=== PATIENT | female | born 1995 | race Two or more races ===

== ENCOUNTER 2023-07-11 18:24 | Emergency (ER) | payer BC, SELFPAY ==
[2023-07-11 18:26] VITALS: BP 131/94
[2023-07-11 18:46] LABS: % Basophils 0.5 % (0-2); % Eosinophils 0.9 % (0-6); % Immature Granulocytes 0.3 % (0-0.5); % Lymphocytes 43.7 % (20.5-51.1); % Monocytes 5.8 % (1.7-9.3); % Neutrophils 48.8 % (42.2-75.2); Absolute Eosinophils 0.1 10^3/uL (0-0.7); Absolute Lymphocytes 3.5 10^3/uL (1.2-3.4); Absolute Monocytes 0.5 10^3/uL (0.1-0.6); Absolute Neutrophils 3.9 10^3/uL (1.4-6.5); Hematocrit 41.5 % (37.0-47.0); Hemoglobin 14.3 g/dL (12.0-16.0); Mean Corp Hgb Conc. 34.5 g/dL (33.0-37.0); Mean Corpuscular Hgb 30.7 pg (27.0-31.0); Mean Corpuscular Volume 89.1 fL (81.0-99.0); Nucleated Red Blood Cells % 0 %; Platelet Count 227 10^3/uL (130-400); Red Blood Cell Count 4.66 10^6/uL (4.20-5.40); Red Cell Dist. Width 11.9 % (11.5-14.5); White Blood Cell Count 7.9 10^3/uL (4.8-10.8)
[2023-07-11 19:04] LABS: ALT (SGPT) 44 U/L (0-35); AST (SGOT) 39 U/L (14-36); Albumin 4.6 g/dl (3.5-5.0); Alkaline Phosphatase 85 U/L (38-126); Blood Urea Nitrogen 12 mg/dl (7-17); Calcium 9.8 mg/dl (8.4-10.2); Carbon Dioxide 27 mmol/L (22-30); Chloride 101 mmol/L (98-107); Glucose 118 mg/dl (70-99); Sodium 137 mmol/L (135-145); Total Bilirubin 0.5 mg/dl (0.2-1.3); Total Protein 8.6 g/dl (6.3-8.2); eGFR > 60.00
[2023-07-11 19:10] VITALS: BMI 30.5
[2023-07-11 19:15] VITALS: BP 121/95
[2023-07-11 19:15] LABS: Beta HCG Quantitative 13.51 mIU/ml
--- NOTE | 2023-07-11 19:30 | ED.GENMED ---
History of Present Illness
General
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
Source: patient
Exam Limitations: none
Time Seen by Provider: 07/11/23 19:05
Travel History
Have you had any contact with someone who has COVID-19?: No
Do you have any symptoms of coronavirus? Fever > 100 degrees, chills, cough, shortness of breath, sore throat, loss of taste or smell, muscle aches, or headache?: No
History of Present Illness
History of Present Illness:
This is a 28 year old female that comes in with c/o bleeding through 5 pads in 1.5 hours. States that this is her second Miscarriage. States that she went to see the CORE WINDING OPERATOR on Jun 17. States that her HCG level at that time was only 60. Then on the
it was down to 52, and 2 days later it was only 45. Patient was given Misoprostol on the . States that she had no bleeding at the beginning. Then 4 hours later she started to bleed. States that she is having cramping and large clots. States
that she also has a headache. Denies any fever, chills, chest pain, SOB, nausea, vomiting, diarrhea, dizziness, urinary burning.
Past History
Past History
ED Past Medical History: None; Negative Asthma, HTN, Hypercholesterolemia or NIDDM
ED Past Surgical History: Gynecological (D7C Mar 30 2023)
Social History
Tobacco: Non-smoker
Alcohol: Occasional
Personal:
Living: with family
Review of Systems
Review of Systems
All Other Systems: ROS reviewed and negative except as documented in HPI and ROS
Constitutional: Reports no symptoms; Denies fever or chills
EENT: Reports no symptoms
Respiratory: Reports no symptoms; Denies cough or trouble breathing
Cardiac: Reports no symptoms; Denies chest pain
ABD/GI: Reports abdominal pain (Cramping); Denies nausea, vomiting or diarrhea
: Reports bleeding (5 pads in 1.5 hours); Denies dysuria, frequency or urgency
Musculoskeletal: Reports no symptoms
Skin: Reports no symptoms
Neurological: Reports headache; Denies dizzy
Psychiatric: Reports no symptoms
Phy Exam
General Physical Exam
General Presentation: mild distress
General age: appears stated age
General Skin: warm and dry
General Habitus: normal
General Mental: alert
General Hydration: appears well hydrated
ENT Exam
ENT Exam: TM's normal, pharynx normal and neck supple
Eye Exam
Eye Exam: EOMI
Cardiovascular Exam
Cardiovascular Exam: regular rate/rhythm, no edema, no murmur and normal peripheral pulses
Pulmonary Exam
Pulmonary Exam: lungs clear, no respiratory distress, no rales, chest non tender, no crackles, no rhonchi, no wheezing and no cough
Gastrointestinal Exam
Gastrointestinal Exam: normal bowel sounds, soft, no organomegaly, no pulsatile mass, non distended and tender (Lower abd tenderness with palpation)
Genitourinary Exam Female
Exam Female: vaginal bleeding (Small amount noted on Pad at this time )
Musculoskeletal Exam
Musculoskeletal Exam: full ROM and no edema
Skin Exam
Skin Exam: normal color, warm/dry, no rash and no petechia
Psychiatric Exam
Psychiatric Exam: normal mood/affect
Course
Orders/Labs/Results
Orders:
Orders
07/11/23 18:40
Type+Screen Urgent
Complete Blood Count/With Diff Urgent
Comprehensive Metabolic Panel Urgent
HCG, Beta Quantitative [Beta HCG Quantitative] Urgent
Is this a screen?: No
Comment: Pt is currently in miscarriage
07/11/23 19:21
0.9% Sodium Chloride 1000 ml [Nss] 1,000 ml IV BOLUS
Ketorolac [Toradol] 30 mg IV NOW STA
US Pelvis Only (non-obstetric) Urgent
Comment:
Reason For Exam: recent Misscarriage, concern for retained products
Abnormal Lab Results
07/11/23
18:40
MPV 11.0 H fL
(7.4-10.4)
Absolute Lymphs (auto) 3.5 H 10^3/uL
(1.2-3.4)
Creatinine 0.5 L mg/dL
(0.6-1.0)
Glucose 118 H mg/dl
(70-99)
AST 39 H U/L
(14-36)
ALT 44 H U/L
(0-35)
Total Protein 8.6 H g/dl
(6.3-8.2)
07/11/23 18:40
07/11/23 18:40
Glucose nonfasting, AST/ALT mildly elevated. Beta HCG 13.51,
Vital Signs
Initial and Last Documented VS:
Initial Vital Signs
Temp Pulse Resp BP Pulse Ox
98.7 F 87 18 131/94 98
07/11/23 18:26 07/11/23 18:26 07/11/23 18:26 07/11/23 18:26 07/11/23 18:26
Last Documented Vital Signs
Temp Pulse Resp BP Pulse Ox
98.1 F 76 16 112/67 100
07/11/23 21:18 07/11/23 21:18 07/11/23 21:18 07/11/23 21:18 07/11/23 21:18
MDM/Problems Addressed
Differential Diagnosis Includes:
Miscarriage, retained products of conception
MDM/Problems Addressed:
This is a 28 year old female that comes in with c/o lower abd pain and heavy vaginal bleeding. States that she has gone through 5 pads in 1.5 hours. States that she was given Misoprostol on the on Jun. States that she started bleeding 4
hours after she started this. States that today has been very heavy.
will get labs and Ultrasound
back into see patient. Explained that her US is negative for any retained products. The body is trying to clean itself. Patient to follow up with the CORE WINDING OPERATOR for further evaluation. Tylenol or Ibuprofen for pain. Return with any concerns.
Chronic conditions affecting care:
NA
Acute Exacerbation and/or Progression of Chronic Illness:
Miscarriage and started Misoprostol on the Jun.
*Radiology
Radiology exam reviewed: radiology read reviewed (US- Simple fluid-filled endometrium. No overt evidence for blood products or retained products of conception. Nonvisualization of the left ovary. )
*Pulse Oximetry
Patient hypoxic: no
*EKG
Interpreted by ED Provider?: NA
Rate: EKG- N/A
*Law Reporter Interpretation
Rate: Law Reporter- N/A
*Critical Care Note
Total Time (30-74mins, 75-104mins- exclusive of procedures): Not Applicable
ED Attending Note
-
Portions of this chart may have been created with voice recognition software.� Occasional wrong word or��sound alike� substitutions may have occurred due to the inherent limitations of voice recognition software.
Discharge Plan
Departure
Patient Disposition: Home (Routine Discharge)
Date of Disposition: 07/11/23
Time of Disposition: 21:48
Patient with high blood pressure during this ER visit?: No
Condition: Good
Covid-19: Not Applicable
Discharge Problem:
Miscarriage
Instructions: Miscarriage (DC)
Prescriptions:
No Action
ondansetron 8 mg Tablet,Disintegrating
8 mg PO DAILY
1 mg Tablet
1 tab PO DAILY
docusate sodium [Colace] 100 mg Capsule
200 mg PO DAILY
Referrals:
NONE,* [Family Provider] -
Activity Restrictions/Additional Instructions:
As discussed, your blood work shows that your Hgb is normal. Your US is negative for any retained products. Please increase your water intake to 8-8oz glasses daily. Please follow up with the CORE WINDING OPERATOR for further evaluation. You may also use Tylenol
1000mg every 6 hours and alternate with Ibuprofen 600mg every 6 hours with food for pain. IF YOU HAVE ANY OTHER CONCERNS PLEASE RETURN TO THE EMERGENCY ROOM.
Interventions
Interventions:
*Risk Screen - Suicide Last Done: 07/11/23 18:30
*General Assessment Last Done: 07/11/23 19:10
*Neglect/Abuse Screening Last Done: 07/11/23 18:30
ED- Fall Risk Assessment Last Done: 07/11/23 19:12
*ED COVID-19 Vaccine History Last Done: 07/11/23 19:10
ED-Female Genitourinary Assessment Last Done: 07/11/23 19:12
[2023-07-11] MEDS: NSS 1000 IV (19:38)
[2023-07-11] MEDS: TORADOL 30 MG IV (19:38)
[2023-07-11 21:18] VITALS: BP 112/67
[2023-07-11 22:30] VITALS: BP 110/59
== END 2023-07-11 22:32 | disposition home or self-care (01) ==
LOC: EMR 18:24
PROVIDERS: Emergency Medicine; EMERGENCY PHYSICIAN Emergency Medicine
DX: O03.4 Incomplete spontaneous abortion without complication (principal)
CPT/HCPCS: 99284; 96374; 96361; 76856; 80053; 84702; 85025; 86850; 86900; 86901

== ENCOUNTER 2023-07-13 08:25 | Emergency (ER) | payer BC, SELFPAY ==
[2023-07-13 08:34] VITALS: BP 120/77
--- NOTE | 2023-07-13 09:00 | ED.GENMED ---
History of Present Illness
General
Chief Complaint: Vaginal Bleeding
Time Seen by Provider: 07/13/23 09:00
Travel History
Have you had any contact with someone who has COVID-19?: No
Do you have any symptoms of coronavirus? Fever > 100 degrees, chills, cough, shortness of breath, sore throat, loss of taste or smell, muscle aches, or headache?: No
History of Present Illness
History of Present Illness:
HPI: The patient was here 2 days ago with vaginal bleeding and had a quant at that time of 13.5. She comes in today due to passing tissue and thought that her 'uterus fell out'. She has minimal pelvic discomfort more so on the right side. She is
no longer seeing anybody from [place] [facility] but is to be following up with Adelina Fournier NP at [facility].
EXAM:
GENERAL: Well appearing in no distress
HEENT: Moist oral mucosa
CARDIOVASCULAR: No murmurs, normal heart rate and rhythm, No chest wall tenderness
PULMONARY: No respiratory distress, breath sounds are clear and equal
ABDOMEN: Soft with no peritoneal signs, minimal right lower tenderness
NEUROLOGIC: Excellent strength all extremities, no coordination deficits
PSYCHIATRIC: Appropriate mental status, normal insight and judgement
EXTREMITIES: Nontender, no edema, moves all extremities equally
SKIN: No rash, no lesions
ED COURSE:
9:15 AM: I initially evaluated patient
NUMBER AND COMPLEXITY OF PROBLEMS ADDRESSED AT THE ENCOUNTER
� Chronic conditions affecting care: Had a D&C last year
� Acute Exacerbation and/or Progression of Chronic Illness: This is an acute problem
� Differential Diagnosis includes: Retained POC, miscarriage
AMOUNT AND/OR COMPLEXITY OF DATA TO BE REVIEWED AND ANALYZED
� I performed an independent evaluation of and my interpretation is:
EKG:
CT:
X-rays:
Laboratory Studies: hCG has dropped to 6.2, hemoglobin stable at 13.4
Other:
� Review of other/old records: Quant 2 days ago was 13.5, blood type is O+, ultrasound from 07/11/2023 showed a fluid-filled endometrium with no evidence of blood products or POC's
� Clinical information was obtained by an independent historian: I spoke to the at bedside
� Prescriptions/Medications Considered but not given:
� Further testing considered but not performed: No indication for repeat ultrasound as she already passed tissue and had an unremarkable ultrasound 2 days ago
RISK OF COMPLICATIONS AND/OR MORBIDITY OR MORTALITY OF PATIENT MANAGEMENT
� Social determinants of health affecting care: Lives at home
� Discussion with other providers: I notified Adelina Fournier [facility]
� Escalation of care including admission/observation vs risk of discharge considered: GAMING MANAGER at [facility] recommends sending tissue for pathology which we have done. hCG level has continued to drop.
Past History
Past History
ED Past Medical History: None; Negative Asthma, HTN, Hypercholesterolemia or NIDDM
ED Past Surgical History: Gynecological (D7C Mar 30 2023)
Social History
Tobacco: Non-smoker
Alcohol: Occasional
Personal:
Living: with family
Phy Exam
Physical Exam
Physical Exam:
See HPI
Course
Orders/Labs/Results
Orders:
Orders
07/13/23 09:25
Pathology LDRP [LDRP Pathology] Routine
Date Specimen was Collected: 07/13/23
Pre-Operative Diagnosis: POC
Operative Procedure: Spontaneous passage of tissue
Gestational Age: unknown
Tissue Submitted: Placenta
07/13/23 09:26
Beta HCG Quantitative Urgent
Is this a screen?: No
Complete Blood Count/With Diff Urgent
Abnormal Lab Results
07/13/23
09:26
MPV 11.1 H fL
(7.4-10.4)
07/13/23 09:26
Vital Signs
Initial and Last Documented VS:
Initial Vital Signs
Temp Pulse Resp BP Pulse Ox
98.3 F 76 16 120/77 98
07/13/23 08:34 07/13/23 08:34 07/13/23 08:34 07/13/23 08:34 07/13/23 08:34
Last Documented Vital Signs
Temp Pulse Resp BP Pulse Ox
98.3 F 76 16 120/77 98
07/13/23 08:34 07/13/23 08:34 07/13/23 08:34 07/13/23 08:34 07/13/23 08:34
*Critical Care Note
Total Time (30-74mins, 75-104mins- exclusive of procedures): Not Applicable
ED Attending Note
-
Portions of this chart may have been created with voice recognition software.� Occasional wrong word or��sound alike� substitutions may have occurred due to the inherent limitations of voice recognition software.
Discharge Plan
Departure
Patient Disposition: Home (Routine Discharge)
Date of Disposition: 07/13/23
Time of Disposition: 10:11
Patient with high blood pressure during this ER visit?: Yes
Discharge Problem:
Complete miscarriage
Prescriptions:
No Action
ondansetron 8 mg Tablet,Disintegrating
8 mg PO DAILY
1 mg Tablet
1 tab PO DAILY
docusate sodium [Colace] 100 mg Capsule
200 mg PO DAILY
Referrals:
NONE,* [Family Provider] -
Activity Restrictions/Additional Instructions:
hCG has gone down to 6.2. I notified Adelina Fournier; pathology testing is pending.
Interventions
Interventions:
*Risk Screen - Suicide Last Done: 07/13/23 09:18
*General Assessment Last Done: 07/13/23 09:18
*Neglect/Abuse Screening Last Done: 07/13/23 09:18
*ED COVID-19 Vaccine History Last Done: 07/13/23 08:34
ED-Female Genitourinary Assessment Last Done: 07/13/23 09:18
--- NOTE | 2023-07-13 09:30 | EDRN ---
per pathology dental laboratory supervisor instructions, this ATHLETE MANAGER sent tissue passed vaginally by this pt to the lab via tube system in a sterile urine specimen container labeled with demo labels that this ATHLETE MANAGER dated, timed, labeled source, and signed with RN ID
number.
[2023-07-13 09:33] LABS: % Basophils 0.5 % (0-2); % Immature Granulocytes 0.2 % (0-0.5); % Lymphocytes 35.1 % (20.5-51.1); % Monocytes 5.2 % (1.7-9.3); Absolute Eosinophils 0.1 10^3/uL (0-0.7); Absolute Lymphocytes 2.1 10^3/uL (1.2-3.4); Absolute Monocytes 0.3 10^3/uL (0.1-0.6); Absolute Neutrophils 3.5 10^3/uL (1.4-6.5); Hematocrit 39.4 % (37.0-47.0); Hemoglobin 13.4 g/dL (12.0-16.0); Mean Corpuscular Hgb 30.7 pg (27.0-31.0); Mean Corpuscular Volume 90.2 fL (81.0-99.0); Mean Platelet Volume 11.1 fL (7.4-10.4); Nucleated Red Blood Cells % 0 %; Platelet Count 192 10^3/uL (130-400); Red Blood Cell Count 4.37 10^6/uL (4.20-5.40); Red Cell Dist. Width 11.9 % (11.5-14.5)
[2023-07-13 10:08] LABS: Beta HCG Quantitative 6.21 mIU/ml
[2023-07-13 10:23] VITALS: BP 110/77
== END 2023-07-13 10:31 | disposition home or self-care (01) ==
LOC: EMR 08:25
PROVIDERS: EMERGENCY PHYSICIAN Emergency Medicine
DX: O03.9 Complete or unspecified spontaneous abortion without complication (principal); R03.0 Elevated blood-pressure reading, without diagnosis of hypertension
CPT/HCPCS: 99284; 88305; 84702; 85025

== ENCOUNTER 2023-10-19 08:52 | Emergency (ER) | payer BC, SELFPAY ==
[2023-10-19 09:14] VITALS: BP 114/78
[2023-10-19 09:37] LABS: % Basophils 0.1 % (0-2); % Immature Granulocytes 0.2 % (0-0.5); % Lymphocytes 10.4 % (20.5-51.1); % Monocytes 4.7 % (1.7-9.3); % Neutrophils 84.6 % (42.2-75.2); Absolute Lymphocytes 1.4 10^3/uL (1.2-3.4); Absolute Monocytes 0.6 10^3/uL (0.1-0.6); Absolute Neutrophils 11.4 10^3/uL (1.4-6.5); Hematocrit 42.4 % (37.0-47.0); Hemoglobin 14.3 g/dL (12.0-16.0); Mean Corp Hgb Conc. 33.7 g/dL (33.0-37.0); Mean Corpuscular Hgb 30.4 pg (27.0-31.0); Mean Corpuscular Volume 90.2 fL (81.0-99.0); Nucleated Red Blood Cells % 0 %; Platelet Count 174 10^3/uL (130-400); Red Cell Dist. Width 12.2 % (11.5-14.5); White Blood Cell Count 13.5 10^3/uL (4.8-10.8)
[2023-10-19 09:56] LABS: ALT (SGPT) 41 U/L (0-35); AST (SGOT) 27 U/L (14-36); Albumin 4.9 g/dl (3.5-5.0); Alkaline Phosphatase 63 U/L (38-126); Blood Urea Nitrogen 12 mg/dl (7-17); Calcium 9.8 mg/dl (8.4-10.2); Carbon Dioxide 21 mmol/L (22-30); Chloride 105 mmol/L (98-107); Glucose 146 mg/dl (70-99); Lipase 50 U/L (23-300); Potassium 4.2 mmol/L (3.5-5.1); Sodium 139 mmol/L (135-145); Total Bilirubin 0.7 mg/dl (0.2-1.3); Total Protein 8.6 g/dl (6.3-8.2); eGFR > 60.00
[2023-10-19 10:02] LABS: HCG, Serum Qualitative Screen Negative
[2023-10-19] MEDS: ZOFRAN 4 MG IV (12:36)
[2023-10-19] MEDS: TORADOL 30 MG IV (12:36)
--- NOTE | 2023-10-19 13:42 | ED.GENMED ---
History of Present Illness
General
Chief Complaint: Abdominal Pain
Source: patient
Time Seen by Provider: 10/19/23 12:16
Travel History
Have you had any contact with someone who has COVID-19?: No
Do you have any symptoms of coronavirus? Fever > 100 degrees, chills, cough, shortness of breath, sore throat, loss of taste or smell, muscle aches, or headache?: No
History of Present Illness
History of Present Illness:
28-year-old female with no significant past medical history presenting to the emergency department for evaluation of right-sided abdominal pain/flank pain that began gradually in onset yesterday, worsening throughout the day into this morning
accompanied with nausea and vomiting as well as chills and diminished p.o. intake to both solids and liquids. States she wanted to wait and see if pain would resolve after she took some Advil yesterday and yesterday evening but this morning with
symptoms continuing presented to the ER. She denies any fevers, rigors, bowel changes, urinary symptoms or any other concerns. Denies any history of similar. Social history and family history noncontributory.
Past History
Past History
ED Past Medical History: None; Negative Asthma, HTN, Hypercholesterolemia or NIDDM
ED Past Surgical History: Gynecological (D7C Mar 30 2023)
Social History
Tobacco: Non-smoker
Alcohol: Occasional
Drug: None
Personal:
Living: with family
Review of Systems
Review of Systems
All Other Systems: ROS reviewed and negative except as documented in HPI and ROS
Phy Exam
Physical Exam
Physical Exam:
GENERAL: Alert , appears quite uncomfortable
EYE: clear conjunctiva b/l
HEAD: NCAT
ENT: o/p clr, mmm.
CARDIAC: Regular rate and rhythm .
LUNGS: Clear breath sounds bilaterally, no acute respiratory distress, no wheezes/rales/rhonchi
ABDOMEN: Soft, no r/g, moderate right-sided CVA tenderness, no tenderness at McBurney's point, negative Jensen sign
NEUROLOGICAL: Alert and oriented
SKIN: Warm and dry, skin intact.
MUSCULOSKELETAL: well perfused.
PSYCH: Normal and appropriate interaction.
Scores
Heart Failure Risk
Heart Failure Risk Score: Not Applicable
Heart Score for Chest Pain Patients
STEMI patient?: Not applicable
Withdrawal Assessment of Alcohol
Withdrawal Assessment Completed?: Not applicable
Course
Orders/Labs/Results
Orders:
Orders
10/19/23 09:19
Test Result ONCE
10/19/23 09:26
Complete Blood Count/With Diff Urgent
Comprehensive Metabolic Panel Urgent
HCG, Serum Qualitative Screen Urgent
Lipase Urgent
10/19/23 12:17
Iohexol [Omnipaque] See Protocol PO NOW STA
10/19/23 12:26
CT Abd/pelvis W Iv Cont Urgent
Comment:
Reason For Exam: RLQ pain/right flank pain
Ketorolac [Toradol] 30 mg IV NOW STA
Ondansetron Injectable [Zofran] 4 mg IV NOW STA
10/19/23 14:02
Urinalysis Reflex To Culture Urgent
Date Specimen was Collected: 10/19/23
Time Specimen was Collected: 09:19
Abnormal Lab Results
10/19/23 10/19/23
09:26 14:02
WBC 13.5 H 10^3/uL
(4.8-10.8)
MPV 12.0 H fL
(7.4-10.4)
Absolute Neuts (auto) 11.4 H 10^3/uL
(1.4-6.5)
Neutrophils % 84.6 H %
(42.2-75.2)
Lymphocytes % 10.4 L %
(20.5-51.1)
Carbon Dioxide 21 L mmol/L
(22-30)
Glucose 146 H mg/dl
(70-99)
ALT 41 H U/L
(0-35)
Total Protein 8.6 H g/dl
(6.3-8.2)
Urine Ketones 2+ A
(Negative)
Urine Bilirubin 1+ A
(Negative)
10/19/23 09:26
10/19/23 09:26
Vital Signs
Initial and Last Documented VS:
Initial Vital Signs
Temp Pulse Resp BP Pulse Ox
98.4 F 106 18 114/78 96
10/19/23 09:14 10/19/23 09:14 10/19/23 09:14 10/19/23 09:14 10/19/23 09:14
Last Documented Vital Signs
Temp Pulse Resp BP Pulse Ox
98.4 F 90 16 112/84 98
10/19/23 09:14 10/19/23 14:40 10/19/23 14:40 10/19/23 14:40 10/19/23 14:40
MDM/Problems Addressed
Differential Diagnosis Includes:
Renal/ureteral colic, appendicitis, cholelithiasis/cholecystitis
MDM/Problems Addressed:
28-year-old female presenting to the emergency department for evaluation of right-sided abdominal/flank pain, gradually worsening in intensity, currently moderate to severe but did not take anything for symptoms yet this morning. No fevers. Labs
have been initiated in triage and does reveal a leukocytosis. ALT is mildly elevated. Based off location of pain renal/ureteral colic certainly considered. CT of the abdomen and pelvis ordered. Will also check a urinalysis. Toradol and Zofran
ordered for symptoms.
*Radiology
Radiology exam reviewed: radiology read reviewed
*Pulse Oximetry
Patient hypoxic: no
*Critical Care Note
Total Time (30-74mins, 75-104mins- exclusive of procedures): Not Applicable
Patient Management
Discussion with other providers: Radiologist
Escalation/DeEscalation of care consider admission/obs:
Received notification from radiology that patient has a normal-appearing appendix however patient does have findings of terminal ileitis which could be infectious versus inflammatory. Patient has no fevers, chills, rigors, bowel changes and states
pain is currently much better controlled. I do think is reasonable to trial an antibiotic as an outpatient for symptomatic relief. Patient can also take Motrin/ibuprofen for pain as needed. Aware of return precautions and follow-up
recommendations. Patient is agreeable with this plan.
ED Attending Note
-
Portions of this chart may have been created with voice recognition software.� Occasional wrong word or��sound alike� substitutions may have occurred due to the inherent limitations of voice recognition software.
Discharge Plan
Departure
Patient Disposition: Home (Routine Discharge)
Date of Disposition: 10/19/23
Time of Disposition: 14:28
Patient with high blood pressure during this ER visit?: No
Discharge Problem:
Terminal ileitis
Instructions: Colitis (DC)
Prescriptions:
New
amoxicillin-pot clavulanate 875-125 mg tablet
1 tab PO BID 10 Days Qty: 20 0RF
No Action
ondansetron 8 mg Tablet,Disintegrating
8 mg PO DAILY
1 mg Tablet
1 tab PO DAILY
docusate sodium [Colace] 100 mg Capsule
200 mg PO DAILY
Referrals:
NONE,* [Family Provider] -
Stand Alone Forms: Return to Work
Interventions
Interventions:
*General Assessment Last Done: 10/19/23 12:38
ED- Fall Risk Assessment Last Done: 10/19/23 12:38
*Nursing Disposition Last Done: 10/19/23 14:40
HA-Bhidaz-Rlrytkglaj Assessment Last Done: 10/19/23 12:38
Discharge Date and Time
Discharge Date/Time: 10/19/23 14:40
Print Language: [place]
[2023-10-19 14:25] LABS: Urine Albumin Trace (Neg - Trace); Urine Bilirubin 1+ (Negative); Urine Character Clear (Clear); Urine Color Yellow; Urine Glucose Negative (Negative); Urine Ketone 2+ (Negative); Urine Leukocyte Negative (Negative); Urine Nitrite Negative (Negative); Urine Occult Blood Negative (Negative); Urine Specific Gravity 1.015 (<1.030); Urine Urobilinogen 1+ (Neg - 1+)
[2023-10-19 14:40] VITALS: BP 112/84
== END 2023-10-19 14:40 | disposition home or self-care (01) ==
LOC: EMR 08:52
PROVIDERS: EMERGENCY PHYSICIAN Emergency Medicine
DX: K50.00 Crohn's disease of small intestine without complications (principal)
CPT/HCPCS: 99284; 96374; 96375; 74177; 80053; 81003; 83690; 84703; 85025; Q9967

== ENCOUNTER 2023-10-23 10:48 | Emergency (ER) | payer BC, SELFPAY ==
[2023-10-23 11:02] VITALS: BP 107/66
--- NOTE | 2023-10-23 12:44 | ED.GENMED ---
History of Present Illness
General
Chief Complaint: Abdominal Symptoms
Source: patient
Exam Limitations: none
Time Seen by Provider: 10/23/23 12:18
Travel History
Have you had any contact with someone who has COVID-19?: No
Do you have any symptoms of coronavirus? Fever > 100 degrees, chills, cough, shortness of breath, sore throat, loss of taste or smell, muscle aches, or headache?: No
History of Present Illness
History of Present Illness:
28-year-old female otherwise healthy presents with persistent right mid abdominal pain with associated constipation. She was here 5 days ago had a CT scan of her abdomen with IV contrast which demonstrated terminal ileitis. Inflammatory bowel
disease on the list differential. She was started on Augmentin and has had the equivalent of 4 days worth of Augmentin. Her pain really. There has been no fever no nausea or vomiting. Her other main complaint is she has not had a bowel movement
in 7 days. Prior to the onset of her illness she denied any bloody diarrhea. No urinary symptoms. No other complaints.
Past History
Past History
ED Past Medical History: None; Negative Asthma, HTN, Hypercholesterolemia or NIDDM
ED Past Surgical History: Gynecological (D7C Mar 30 2023)
Social History
Tobacco: Non-smoker
Alcohol: Occasional
Drug: None
Personal:
Living: with family
Phy Exam
Physical Exam
Physical Exam:
General uncomfortable appearing female no acute respiratory distress HEENT: Normocephalic atraumatic
Heart: Regular rate and rhythm no murmurs
Lungs: Clear no wheeze or rales
Abdomen soft tender to the right mid and lower abdomen as well as the right flank. Mild guarding noted no rebound tenderness normal bowel sounds slightly distended
Extremities: No cyanosis or edema
Skin is warm without rash
Course
Orders/Labs/Results
Orders:
Orders
10/23/23 12:38
Test Result ONCE
10/23/23 12:40
C-Reactive Protein Urgent
Comment: ADD ON
Complete Blood Count/With Diff Urgent
Comprehensive Metabolic Panel Urgent
Erythrocyte Sed Rate Urgent
Comment: ADD ON
HCG, Serum Qualitative Screen Urgent
Lipase Urgent
10/23/23 12:44
Ketorolac [Toradol] 15 mg IV NOW STA
10/23/23 12:46
CT Abd/pel W Iv And Oral Contr Urgent
Comment:
Reason For Exam: right mid abdominal pain, recent abnormal CT
Iohexol [Omnipaque] See Protocol PO NOW STA
10/23/23 12:57
Add On- LAB Urgent
Tests Added?: CRP, Sed rate
10/23/23 17:10
Magnesium Citrate [Citroma] 300 ml PO ONCE ONE
Abnormal Lab Results
10/23/23
12:40
RBC 4.04 L 10^6/uL
(4.20-5.40)
Hct 35.2 L %
(37.0-47.0)
MPV 10.9 H fL
(7.4-10.4)
ESR 63 H mm/hour
(0-20)
Creatinine 0.5 L mg/dL
(0.6-1.0)
AST 42 H U/L
(14-36)
ALT 53 H U/L
(0-35)
C-Reactive Protein 72.60 H mg/L
(0.0-10.00)
10/23/23 12:40
10/23/23 12:40
Vital Signs
Initial and Last Documented VS:
Initial Vital Signs
Temp Pulse Resp BP Pulse Ox
98.1 F 84 16 107/66 98
10/23/23 11:02 10/23/23 11:02 10/23/23 11:02 10/23/23 11:02 10/23/23 11:02
Last Documented Vital Signs
Temp Pulse Resp BP Pulse Ox
98.1 F 83 18 113/71 99
10/23/23 11:02 10/23/23 17:10 10/23/23 17:10 10/23/23 17:10 10/23/23 17:10
MDM/Problems Addressed
Differential Diagnosis Includes:
Persistent right mid abdominal pain and constipation. Recent CT demonstrated terminal ileitis. She has had the equivalent of 4 days of Augmentin without improvement and still without a bowel movement in 7 days. Concern for worsening ileitis
versus fistula versus obstruction.
Will check labs. Given tenderness on exam reached out to gastroenterology. Will order repeat CT scan at this time with oral contrast as well. Toradol ordered for pain.
*Critical Care Note
Total Time (30-74mins, 75-104mins- exclusive of procedures): Not Applicable
Update Note
Update Note:
CAT scan shows no obvious acute finding. The ileitis that was shown in the last imaging study was not present at this time. Inflammatory markers slightly elevated. Did review findings with gastroenterology after the test. Recommended magnesium
citrate and enema however patient did just have a bowel movement after the CAT scan. Will hold off on enema. Will send home with magnesium citrate and MiraLAX. Patient will follow-up closely with GI
ED Attending Note
-
Portions of this chart may have been created with voice recognition software.� Occasional wrong word or��sound alike� substitutions may have occurred due to the inherent limitations of voice recognition software.
Discharge Plan
Departure
Patient Disposition: Home (Routine Discharge)
Date of Disposition: 10/23/23
Time of Disposition: 17:09
Patient with high blood pressure during this ER visit?: No
Discharge Problem:
Abdominal pain
Instructions: Abdominal Pain
Prescriptions:
No Action
ondansetron 8 mg Tablet,Disintegrating
8 mg PO DAILY
1 mg Tablet
1 tab PO DAILY
docusate sodium [Colace] 100 mg Capsule
200 mg PO DAILY
amoxicillin-pot clavulanate 875-125 mg tablet
1 tab PO BID 10 Days Qty: 20 0RF
Referrals:
NONE,* [Family Provider] -
Kayla Schmitz MD [Active] -
Activity Restrictions/Additional Instructions:
Drink plenty of fluids. Continue with bland diet. Follow-up with GI. Finish antibiotics peer return if needed otherwise
Interventions
Interventions:
*Risk Screen - Suicide Last Done: 10/23/23 12:38
*General Assessment Last Done: 10/23/23 12:38
*Neglect/Abuse Screening Last Done: 10/23/23 12:38
*ED COVID-19 Vaccine History Last Done: 10/23/23 11:02
*Nursing Disposition Last Done: 10/23/23 17:25
[facility]-Skafx[facility]-[id number] Assessment Last Done: 10/23/23 12:38
Discharge Date and Time
Discharge Date/Time: 10/23/23 17:33
Print Language: CYMRAES
[2023-10-23] MEDS: TORADOL 15 MG IV (12:46)
[2023-10-23 12:47] LABS: % Basophils 0.2 % (0-2); % Eosinophils 0.2 % (0-6); % Immature Granulocytes 0.2 % (0-0.5); % Lymphocytes 32.9 % (20.5-51.1); % Monocytes 7.7 % (1.7-9.3); % Neutrophils 58.8 % (42.2-75.2); Absolute Lymphocytes 2.1 10^3/uL (1.2-3.4); Absolute Monocytes 0.5 10^3/uL (0.1-0.6); Absolute Neutrophils 3.7 10^3/uL (1.4-6.5); Hematocrit 35.2 % (37.0-47.0); Hemoglobin 12.3 g/dL (12.0-16.0); Mean Corp Hgb Conc. 34.9 g/dL (33.0-37.0); Mean Corpuscular Hgb 30.4 pg (27.0-31.0); Mean Corpuscular Volume 87.1 fL (81.0-99.0); Mean Platelet Volume 10.9 fL (7.4-10.4); Nucleated Red Blood Cells % 0 %; Platelet Count 184 10^3/uL (130-400); Red Blood Cell Count 4.04 10^6/uL (4.20-5.40); Red Cell Dist. Width 12.5 % (11.5-14.5); White Blood Cell Count 6.3 10^3/uL (4.8-10.8)
[2023-10-23 12:48] VITALS: BP 116/60
[2023-10-23] MEDS: OMNIPAQUE 50 ML PO (12:52)
[2023-10-23 13:00] VITALS: BP 111/66
[2023-10-23 13:03] LABS: HCG, Serum Qualitative Screen Negative
[2023-10-23 13:04] LABS: ALT (SGPT) 53 U/L (0-35); AST (SGOT) 42 U/L (14-36); Alkaline Phosphatase 88 U/L (38-126); Blood Urea Nitrogen 9 mg/dl (7-17); Calcium 9.1 mg/dl (8.4-10.2); Carbon Dioxide 27 mmol/L (22-30); Chloride 102 mmol/L (98-107); Glucose 92 mg/dl (70-99); Lipase 66 U/L (23-300); Sodium 139 mmol/L (135-145); Total Bilirubin 0.7 mg/dl (0.2-1.3); Total Protein 7.5 g/dl (6.3-8.2); eGFR > 60.00
[2023-10-23 13:33] LABS: Erythrocyte Sed Rate 63 mm/hour (0-20)
[2023-10-23 17:08] VITALS: BP 113/71
[2023-10-23 17:10] VITALS: BP 113/71
[2023-10-23] MEDS: CITROMA 300 ML PO (17:13)
== END 2023-10-23 17:33 | disposition home or self-care (01) ==
LOC: EMR 10:48
PROVIDERS: Physician Assistant; EMERGENCY PHYSICIAN Emergency Medicine
DX: R10.9 Unspecified abdominal pain (principal); K59.00 Constipation, unspecified
CPT/HCPCS: 99284; 96374; 74177; 80053; 83690; 84703; 85025; 85652; 86140; Q9967

== ENCOUNTER → 2023-11-15 06:33 | Day surgery (SDC) | payer BC, SELFPAY | LOC: GI 06:33 | PROVIDERS: ATTENDING PHYSICIAN Internal Medicine | DX: R10.31 Right lower quadrant pain (principal); R93.3 Abnormal findings on diagnostic imaging of other parts of digestive tract; K63.5 Polyp of colon; R10.13 Epigastric pain; K58.9 Irritable bowel syndrome, unspecified | CPT/HCPCS: 45380; 88305 ==

== ENCOUNTER 2023-12-22 00:08 | Emergency (ER) | payer BC, SELFPAY ==
[2023-12-22 00:13] VITALS: BP 140/89
--- NOTE | 2023-12-22 00:36 | ED.GENMED ---
History of Present Illness
General
Chief Complaint: Back Pain
Source: patient
Exam Limitations: none
Time Seen by Provider: 12/22/23 00:19
History of Present Illness
History of Present Illness:
This is a 28 year old female that comes in with c/o right lower back pain. States that tonight she was sitting watching TV when she went to get up. States that the pain started around 9pm. States that this all started on October 18 and she was on
Bedrest that week due to the pain. Patient has had right sided abd pain that comes and goes and has had a CT scan and Colonoscopy. Terminal ileum was normal. States that the pain is in the middle and right side of the low back. denies any fever,
chills, chest pain, SOB, abd pain, nausea, vomiting, diarrhea, headache, dizziness, urinary burning.
Past History
Past History
ED Past Medical History: Other ( back pain, constipation, ); Negative Asthma, HTN, Hypercholesterolemia or NIDDM
ED Past Surgical History: Gynecological (D&C Mar 30 2023)
Social History
Tobacco: Non-smoker
Alcohol: Occasional
Drug: None
Personal:
Living: with family
Employment: Employed
Review of Systems
Review of Systems
All Other Systems: ROS reviewed and negative except as documented in HPI and ROS
Constitutional: Reports no symptoms; Denies fever or chills
EENT: Reports no symptoms
Respiratory: Reports no symptoms; Denies cough or trouble breathing
Cardiac: Reports no symptoms; Denies chest pain
ABD/GI: Reports no symptoms; Denies abdominal pain, nausea, vomiting or diarrhea
: Reports no symptoms; Denies dysuria, frequency or urgency
Musculoskeletal: Reports back pain (mid and right sided low back pain)
Skin: Reports no symptoms
Neurological: Reports no symptoms; Denies dizzy or headache
Psychiatric: Reports no symptoms
Phy Exam
General Physical Exam
General Presentation: mild distress
General age: appears stated age
General Skin: warm and dry
General Habitus: normal
General Mental: alert
General Hydration: appears well hydrated
ENT Exam
ENT Exam: TM's normal, pharynx normal and neck supple
Eye Exam
Eye Exam: EOMI
Cardiovascular Exam
Cardiovascular Exam: regular rate/rhythm, no edema, no murmur and normal peripheral pulses
Pulmonary Exam
Pulmonary Exam: lungs clear, no respiratory distress, no rales, chest non tender, no crackles, no rhonchi, no wheezing and no cough
Gastrointestinal Exam
Gastrointestinal Exam: normal bowel sounds, soft, no organomegaly, no pulsatile mass, non distended and tender (Right sided abd tenderness with palpation)
Musculoskeletal Exam
Musculoskeletal Exam: back pain (Low back pain with palpation over the spine and right sided tenderness lateral to the spine. Negative for pain with straight leg raise, Going up on her toes. Discomfort with turning sided to side and unable to bend
forward) and no edema
Skin Exam
Skin Exam: normal color, warm/dry, no rash and no petechia
Psychiatric Exam
Psychiatric Exam: normal mood/affect
Course
Orders/Labs/Results
Orders:
Orders
12/22/23 00:34
Acetaminophen 1000MG/100Ml [Ofirmev] 1,000 mg in 100 ml IV ONCE
Acetaminophen IV Indication:: ED Narcotic Naive Pt-ONCE
Dexamethasone Sod Phosphate [Decadron] 20 mg IV NOW STA
HYDROmorphone [Dilaudid] 0.5 mg IV NOW STA
Lumbar Spine Complete, 4 View [CR Lumbar Spine Comp Min 4 Vw*] Urgent
Comment:
Reason For Exam: Low back pain right sided
Vital Signs
Initial and Last Documented VS:
Initial Vital Signs
Temp Pulse Resp BP Pulse Ox
98.2 F 97 20 140/89 96
12/22/23 00:13 12/22/23 00:13 12/22/23 00:13 12/22/23 00:13 12/22/23 00:13
Last Documented Vital Signs
Temp Pulse Resp BP Pulse Ox
98.2 F 81 14 117/75 96
12/22/23 00:13 12/22/23 01:38 12/22/23 01:38 12/22/23 01:22 12/22/23 01:30
MDM/Problems Addressed
Differential Diagnosis Includes:
Low back pain,
MDM/Problems Addressed:
This is a 28 year old female that comes in with c/o right sided low back pain. States that this started October 18 and comes and goes. States that tonight they were sitting watching TV and she went to get up and she started with pain. States that the
pain is severe.
Will get X-ray and medication for pain. Explained to patient that she needs to see the network management specialist and possible have an MRI for further evaluation. Also explained to patient that the nerves form the back wrap around to the abd and this
could be causing her right sided abd pain.
Back into see patient. Explained that her X-ray is negative for any fractures but there appears to be some disc space narrowing. Will have patient follow up with the network management specialist for possible MRI. Patient can use Tylenol and Ibuprofen for
pain. Will give patient a prescription for a steroid for the next 5 days. Patient states that she feels better as long as she doesn't move. States that she could sleep at this time. Will discharge home.
Chronic conditions affecting care:
back pain
Acute Exacerbation and/or Progression of Chronic Illness:
back pain
*Radiology
Radiology exam reviewed: preliminary read by ED provider (Lumbar spine- Negative for any fractures. Questionable disc space narrowing. )
*Pulse Oximetry
Patient hypoxic: no
*EKG
Interpreted by ED Provider?: NA
Rate: EKG- N/A
*Hunter Trapper Interpretation
Rate: Hunter Trapper- N/A
*Critical Care Note
Total Time (30-74mins, 75-104mins- exclusive of procedures): Not Applicable
ED Attending Note
-
Portions of this chart may have been created with voice recognition software.� Occasional wrong word or��sound alike� substitutions may have occurred due to the inherent limitations of voice recognition software.
Discharge Plan
Departure
Patient Disposition: Home (Routine Discharge)
Date of Disposition: 12/22/23
Time of Disposition: 01:44
Patient with high blood pressure during this ER visit?: No
Condition: Good
Covid-19: Not Applicable
Discharge Problem:
Low back pain
Instructions: Low Back Pain (DC)
Prescriptions:
New
prednisone 20 mg tablet
40 mg PO DAILY Qty: 10 0RF
No Action
1 mg Tablet
1 tab PO DAILY
norethindrone-e.estradiol-iron 1 mg-20 mcg (21)/75 mg (7) Tablet
1 tab PO DAILY
Referrals:
Reji Ho MD [Active] - Follow up in 2-3 days
NONE,* [Family Provider] -
Activity Restrictions/Additional Instructions:
As discussed, your X-ray is negative for any fractures. There may be some disc space narrowing. You have been given IV steroids here and a prescription for oral steroids for the next 5 days has been sent to your Pharmacy. Please use Tylenol 1000mg
every 6 hours for pain and Ibuprofen 600mg every 6 hours with food for pain. Please alternate them. So is you take Tylenol at 9am the Ibuprofen will be due at 12 noon and then the Tylenol at 3pm and Ibuprofen at 6pm. This way you are taking
something every 3 hours for pain. Please only use this if you are having pain. Follow up with the network management specialist and your family doctor. IF YOU HAVE INCREASED OR CHANGING PAIN, OR YOU HAVE ANY OTHER CONCERNS PLEASE RETURN TO THE EMERGENCY
ROOM.
Interventions
Interventions:
*Risk Screen - Suicide Last Done: 12/22/23 00:13
*General Assessment Last Done: 12/22/23 00:13
*Neglect/Abuse Screening Last Done: 12/22/23 00:13
ED- Fall Risk Assessment Last Done: 12/22/23 00:13
*ED COVID-19 Vaccine History Last Done: 12/22/23 00:13
[facility]md[facility]-Vhtoycmvxx Assessment Last Done: 12/22/23 00:40
ED-Musculoskeletal Assessment Last Done: 12/22/23 00:40
Discharge Date and Time
Print Language: BENINESE
[2023-12-22 00:46] VITALS: BMI 29.5
[2023-12-22] MEDS: DECADRON 20 MG IV (00:46)
[2023-12-22] MEDS: DILAUDID 0.5 MG IV (00:46)
[2023-12-22] MEDS: OFIRMEV 100 IV (01:10)
[2023-12-22 01:22] VITALS: BP 117/75
== END 2023-12-22 02:20 | disposition home or self-care (01) ==
LOC: EMR 00:08
PROVIDERS: EMERGENCY PHYSICIAN Emergency Medicine
DX: M54.50 Low back pain, unspecified (principal)
CPT/HCPCS: 99284; 96374; 96375 ×2; 72110

== ENCOUNTER → 2024-01-10 13:02 | Outpatient (REF) | payer BC, SELFPAY | LOC: PAVMRI 13:02 | PROVIDERS: ATTENDING PHYSICIAN Physician Assistant Medical | DX: M54.10 Radiculopathy, site unspecified (principal); M54.50 Low back pain, unspecified | CPT/HCPCS: 72148 ==

== ENCOUNTER 2024-01-10 21:04 | Emergency (ER) | payer BC, SELFPAY ==
[2024-01-10 21:07] VITALS: BP 155/104
[2024-01-10] MEDS: MORPHINE SULFATE 4 MG IV (22:31)
[2024-01-10] MEDS: NSS 1000 IV (22:31)
[2024-01-10 22:35] LABS: Urine Albumin Negative (Neg - Trace); Urine Bilirubin Negative (Negative); Urine Character Clear (Clear); Urine Color Yellow; Urine Glucose Negative (Negative); Urine Ketone Trace (Negative); Urine Leukocyte Negative (Negative); Urine Nitrite Negative (Negative); Urine Occult Blood Negative (Negative); Urine Specific Gravity 1.015 (<1.030); Urine Urobilinogen Negative (Neg - 1+)
[2024-01-10 22:36] LABS: % Basophils 0.3 % (0-2); % Eosinophils 0.3 % (0-6); % Immature Granulocytes 0.4 % (0-0.5); % Lymphocytes 21.4 % (20.5-51.1); % Monocytes 5.6 % (1.7-9.3); Absolute Lymphocytes 2.1 10^3/uL (1.2-3.4); Absolute Monocytes 0.6 10^3/uL (0.1-0.6); Absolute Neutrophils 7.2 10^3/uL (1.4-6.5); Hematocrit 38.5 % (37.0-47.0); Hemoglobin 13.3 g/dL (12.0-16.0); Mean Corp Hgb Conc. 34.5 g/dL (33.0-37.0); Mean Corpuscular Hgb 30.4 pg (27.0-31.0); Mean Corpuscular Volume 87.9 fL (81.0-99.0); Mean Platelet Volume 10.5 fL (7.4-10.4); Nucleated Red Blood Cells % 0 %; Platelet Count 278 10^3/uL (130-400); Red Blood Cell Count 4.38 10^6/uL (4.20-5.40); Red Cell Dist. Width 13.2 % (11.5-14.5)
[2024-01-10 22:47] LABS: HCG, Serum Qualitative Screen Negative
[2024-01-10 22:52] LABS: ALT (SGPT) 78 U/L (0-35); AST (SGOT) 54 U/L (14-36); Albumin 4.8 g/dl (3.5-5.0); Alkaline Phosphatase 113 U/L (38-126); Blood Urea Nitrogen 14 mg/dl (7-17); Calcium 10.3 mg/dl (8.4-10.2); Carbon Dioxide 27 mmol/L (22-30); Chloride 101 mmol/L (98-107); Glucose 111 mg/dl (70-99); Sodium 143 mmol/L (135-145); Total Bilirubin 0.7 mg/dl (0.2-1.3); Total Protein 8.5 g/dl (6.3-8.2); eGFR > 60.00
--- NOTE | 2024-01-10 22:53 | ED.GENMED ---
History of Present Illness
<Fatuma Clarke DO - Last Filed: 01/10/24 23:01>
General
Chief Complaint: Back Pain
Time Seen by Provider: 01/10/24 21:34
History of Present Illness
History of Present Illness:
28-year-old female without significant past medical history presenting to the emergency department with abnormal MRI imaging. Patient reports that she has been having ongoing back pain for the past month. She was instructed to see orthopedics.
She saw orthopedics, and had an MRI scheduled today. She was called by the orthopedic physician marketing administrative assistant today with abnormal results and told to come to the hospital. Patient notes lower lumbar back pain. She denies any weakness or numbness to
her extremities. She denies any bowel or bladder incontinence. She denies any fever or history of IVDA. She denies chest pain or difficulty breathing. She is been taking Tylenol Motrin with minimal relief. She has been ambulating, however has
been using a cane secondary to her pain. She denies inciting injury or trauma, or issues with her back in the past. She denies additional acute medical complaints.
Past History
<Fatuma Clarke DO - Last Filed: 01/10/24 23:01>
Past History
ED Past Medical History: Other ( back pain, constipation, ); Negative Asthma, HTN, Hypercholesterolemia or NIDDM
ED Past Surgical History: Gynecological (D&C Mar 30 2023)
Social History
Tobacco: Non-smoker
Alcohol: Occasional
Drug: None
Personal:
Living: with family
Employment: Employed
Phy Exam
<Fatuma Clarke DO - Last Filed: 01/10/24 23:01>
Physical Exam
Physical Exam:
General: Well-appearing, no clinical signs of dehydration, nontoxic and in no acute distress
HEENT: protecting airway
Neck: appears supple
CV: Normal heart rate, regular rhythm, no evidence of cyanosis
Resp: No accessory muscle use, no increased work of breathing, lungs clear to auscultation bilaterally
Abd: Soft and non-distended, no tenderness to palpation
Extremities: No deformities, no swelling, no erythema, pulses and sensation intact
Neuro: alert, no focal neurologic deficit. Intact motor and sensation to bilateral upper and lower extremities. Generalized tenderness to the lower lumbar spine, midline and paraspinal
: deferred
Rectal: deferred
Psych: Normal affect
Skin: Intact
Course
<Fatuma Clarke, DO - Last Filed: 01/10/24 23:01>
Orders/Labs/Results
Orders:
Orders
01/10/24 21:52
Electrocardiogram (*1) Urgent
Reason for Study: Other
Other Reason for Exam: sepsis
EKG- Treatment ONCE
0.9% Sodium Chloride 1000 ml [Nss] 1,000 ml IV BOLUS
Morphine Sulfate 4 mg IV NOW STA
01/10/24 21:53
Test Result ONCE
01/10/24 22:22
Add On- LAB Urgent
Tests Added?: CRP, ESR levels
01/10/24 22:26
C-Reactive Protein Urgent
Complete Blood Count/With Diff Urgent
Comprehensive Metabolic Panel Urgent
Erythrocyte Sed Rate Urgent
HCG, Serum Qualitative Screen Urgent
Lactic Acid Q4H
Comment: CANCEL 2nd LACTIC ACID IF 1st LACTIC ACID IS LESS THAN 2
Urinalysis Reflex To Culture Urgent
Date Specimen was Collected: 01/10/24
Time Specimen was Collected: 22:15
Blood Culture Urgent
LEONARDA Source: Blood/Venous
Specimen Description:
01/10/24 22:53
Protime/PTT Urgent
01/10/24 23:38
HYDROmorphone [Dilaudid] 1 mg IV NOW STA
Abnormal Lab Results
01/10/24
22:26
MPV 10.5 H fL
(7.4-10.4)
Absolute Neuts (auto) 7.2 H 10^3/uL
(1.4-6.5)
ESR 60 H mm/hour
(0-20)
Glucose 111 H mg/dl
(70-99)
Calcium 10.3 H mg/dl
(8.4-10.2)
AST 54 H U/L
(14-36)
ALT 78 H U/L
(0-35)
C-Reactive Protein 68.80 H mg/L
(0.0-10.00)
Total Protein 8.5 H g/dl
(6.3-8.2)
Urine Ketones Trace A
(Negative)
01/10/24 22:26
01/10/24 22:26
Vital Signs
Initial and Last Documented VS:
Initial Vital Signs
Temp Pulse Resp BP Pulse Ox
98.4 F 100 28 155/104 98
01/10/24 21:07 01/10/24 21:07 01/10/24 21:07 01/10/24 21:07 01/10/24 21:07
Last Documented Vital Signs
Temp Pulse Resp BP Pulse Ox
98.4 F 98 18 128/87 95
01/10/24 21:07 01/10/24 22:54 01/10/24 22:54 01/10/24 22:54 01/10/24 22:54
<Dinora Paris PA-C - Last Filed: 01/11/24 11:50>
Orders/Labs/Results
Orders:
Orders
01/10/24 21:52
Electrocardiogram (*1) Urgent
Reason for Study: Other
Other Reason for Exam: sepsis
EKG- Treatment ONCE
0.9% Sodium Chloride 1000 ml [Nss] 1,000 ml IV BOLUS
Morphine Sulfate 4 mg IV NOW STA
01/10/24 21:53
Test Result ONCE
01/10/24 22:22
Add On- LAB Urgent
Tests Added?: CRP, ESR levels
01/10/24 22:26
C-Reactive Protein Urgent
Complete Blood Count/With Diff Urgent
Comprehensive Metabolic Panel Urgent
Erythrocyte Sed Rate Urgent
HCG, Serum Qualitative Screen Urgent
Lactic Acid Q4H
Comment: CANCEL 2nd LACTIC ACID IF 1st LACTIC ACID IS LESS THAN 2
Urinalysis Reflex To Culture Urgent
Date Specimen was Collected: 01/10/24
Time Specimen was Collected: 22:15
Blood Culture Urgent
LEONARDA Source: Blood/Venous
Specimen Description:
01/10/24 22:53
Protime/PTT Urgent
01/10/24 23:38
HYDROmorphone [Dilaudid] 1 mg IV NOW STA
Abnormal Lab Results
01/10/24
22:26
MPV 10.5 H fL
(7.4-10.4)
Absolute Neuts (auto) 7.2 H 10^3/uL
(1.4-6.5)
ESR 60 H mm/hour
(0-20)
Glucose 111 H mg/dl
(70-99)
Calcium 10.3 H mg/dl
(8.4-10.2)
AST 54 H U/L
(14-36)
ALT 78 H U/L
(0-35)
C-Reactive Protein 68.80 H mg/L
(0.0-10.00)
Total Protein 8.5 H g/dl
(6.3-8.2)
Urine Ketones Trace A
(Negative)
01/10/24 22:26
01/10/24 22:26
Vital Signs
Initial and Last Documented VS:
Initial Vital Signs
Temp Pulse Resp BP Pulse Ox
98.4 F 100 28 155/104 98
01/10/24 21:07 01/10/24 21:07 01/10/24 21:07 01/10/24 21:07 01/10/24 21:07
Last Documented Vital Signs
Temp Pulse Resp BP Pulse Ox
98.4 F 98 18 128/87 95
01/10/24 21:07 01/10/24 22:54 01/10/24 22:54 01/10/24 22:54 01/10/24 22:54
<Scott Yeung PA-C - Last Filed: 01/13/24 08:14>
Orders/Labs/Results
Orders:
Orders
01/10/24 21:52
Electrocardiogram (*1) Urgent
Reason for Study: Other
Other Reason for Exam: sepsis
EKG- Treatment ONCE
0.9% Sodium Chloride 1000 ml [Nss] 1,000 ml IV BOLUS
Morphine Sulfate 4 mg IV NOW STA
01/10/24 21:53
Test Result ONCE
01/10/24 22:22
Add On- LAB Urgent
Tests Added?: CRP, ESR levels
01/10/24 22:26
C-Reactive Protein Urgent
Complete Blood Count/With Diff Urgent
Comprehensive Metabolic Panel Urgent
Erythrocyte Sed Rate Urgent
HCG, Serum Qualitative Screen Urgent
Lactic Acid Q4H
Comment: CANCEL 2nd LACTIC ACID IF 1st LACTIC ACID IS LESS THAN 2
Urinalysis Reflex To Culture Urgent
Date Specimen was Collected: 01/10/24
Time Specimen was Collected: 22:15
Blood Culture Urgent
LEONARDA Source: Blood/Venous
Specimen Description:
01/10/24 22:53
Protime/PTT Urgent
01/10/24 23:38
HYDROmorphone [Dilaudid] 1 mg IV NOW STA
Abnormal Lab Results
01/10/24
22:26
MPV 10.5 H fL
(7.4-10.4)
Absolute Neuts (auto) 7.2 H 10^3/uL
(1.4-6.5)
ESR 60 H mm/hour
(0-20)
Glucose 111 H mg/dl
(70-99)
Calcium 10.3 H mg/dl
(8.4-10.2)
AST 54 H U/L
(14-36)
ALT 78 H U/L
(0-35)
C-Reactive Protein 68.80 H mg/L
(0.0-10.00)
Total Protein 8.5 H g/dl
(6.3-8.2)
Urine Ketones Trace A
(Negative)
01/10/24 22:26
01/10/24 22:26
Vital Signs
Initial and Last Documented VS:
Initial Vital Signs
Temp Pulse Resp BP Pulse Ox
98.4 F 100 28 155/104 98
01/10/24 21:07 01/10/24 21:07 01/10/24 21:07 01/10/24 21:07 01/10/24 21:07
Last Documented Vital Signs
Temp Pulse Resp BP Pulse Ox
98.4 F 98 18 128/87 95
01/10/24 21:07 01/10/24 22:54 01/10/24 22:54 01/10/24 22:54 01/10/24 22:54
Kathylt;Alina Amador PA-C - Last Filed: 01/14/24 12:36>
Orders/Labs/Results
Orders:
Orders
01/10/24 21:52
Electrocardiogram (*1) Urgent
Reason for Study: Other
Other Reason for Exam: sepsis
EKG- Treatment ONCE
0.9% Sodium Chloride 1000 ml [Nss] 1,000 ml IV BOLUS
Morphine Sulfate 4 mg IV NOW STA
01/10/24 21:53
Test Result ONCE
01/10/24 22:22
Add On- LAB Urgent
Tests Added?: CRP, ESR levels
01/10/24 22:26
C-Reactive Protein Urgent
Complete Blood Count/With Diff Urgent
Comprehensive Metabolic Panel Urgent
Erythrocyte Sed Rate Urgent
HCG, Serum Qualitative Screen Urgent
Lactic Acid Q4H
Comment: CANCEL 2nd LACTIC ACID IF 1st LACTIC ACID IS LESS THAN 2
Urinalysis Reflex To Culture Urgent
Date Specimen was Collected: 01/10/24
Time Specimen was Collected: 22:15
Blood Culture Urgent
LEONARDA Source: Blood/Venous
Specimen Description:
01/10/24 22:53
Protime/PTT Urgent
01/10/24 23:38
HYDROmorphone [Dilaudid] 1 mg IV NOW STA
Abnormal Lab Results
01/10/24
22:26
MPV 10.5 H fL
(7.4-10.4)
Absolute Neuts (auto) 7.2 H 10^3/uL
(1.4-6.5)
ESR 60 H mm/hour
(0-20)
Glucose 111 H mg/dl
(70-99)
Calcium 10.3 H mg/dl
(8.4-10.2)
AST 54 H U/L
(14-36)
ALT 78 H U/L
(0-35)
C-Reactive Protein 68.80 H mg/L
(0.0-10.00)
Total Protein 8.5 H g/dl
(6.3-8.2)
Urine Ketones Trace A
(Negative)
01/10/24 22:26
01/10/24 22:26
Vital Signs
Initial and Last Documented VS:
Initial Vital Signs
Temp Pulse Resp BP Pulse Ox
98.4 F 100 28 155/104 98
01/10/24 21:07 01/10/24 21:07 01/10/24 21:07 01/10/24 21:07 01/10/24 21:07
Last Documented Vital Signs
Temp Pulse Resp BP Pulse Ox
98.4 F 98 18 128/87 95
01/10/24 21:07 01/10/24 22:54 01/10/24 22:54 01/10/24 22:54 01/10/24 22:54
<Fatuma Clarke DO - Last Filed: 01/10/24 23:01>
MDM/Problems Addressed
MDM/Problems Addressed:
28-year-old female without significant past medical history presenting for abnormal MRI imaging of her lumbar spine which was obtained today, due to ongoing back pain for the past month. Vital signs on arrival significant for mild hypertension.
On exam patient is nontoxic, no acute distress. Patient arrives with MRI report, which was reviewed. MRI concerning for acute infectious discitis at L2-L3 with adjacent acute osteomyelitis and L2-L3 vertebral bodies. There is also a 2.8 cm
paraspinal abscess anterior to the L2/L3 intervertebral disc. Patient with obviously concerning findings. Patient again denies any IVDA or issues with her back in the past. She is presently afebrile, neurologically intact. She will require
transfer to Center with spinal surgery, no spinal surgery available at this facility. Patient had established care with [facility]. In discussion with patient, plan to transfer to [facility]. Will obtain laboratory analysis, inflammatory markers,
blood culture.
22:35 - Patient accepted to [facility] by Dr. Donaldson, ER attending. Did also discuss with [facility] resident on-call. Holding antibiotics at this time. Pending bed assignment.
22:50 - Patient will go to the emergency department to facilitate rapidity of transfer. Will arrange transport.
<Fatuma Clarke DO - Last Filed: 01/10/24 23:01>
*Critical Care Note
Total Time (30-74mins, 75-104mins- exclusive of procedures): 43
comment:
The high probability of a clinically significant, sudden or life threatening deterioration of the neurologic system(s) required my full and direct attention, intervention and personal management. The aggregate critical care time was 43 minutes. This
time is in addition to time spent performing reported procedures but includes the following:
[x] Data Review and interpretation
[x] Patient assessment and monitoring of vital signs
[x] Documentation
[x] Medication orders and management
<Dinora Paris PA-C - Last Filed: 01/11/24 11:50>
Update Note
Update Note:
01/11/2024 1150 AM
Maxine Paris PA-C reviewed by culture results preliminarily positive gram-positive cocci in the anaerobic bottle. This was faxed to [facility] where the patient was transferred the number to [phone]
<Scott Yeung PA-C - Last Filed: 01/13/24 08:14>
Update Note
Update Note:
01/11/2024 1150 AM
Maxine Paris PA-C reviewed by culture results preliminarily positive gram-positive cocci in the anaerobic bottle. This was faxed to [facility] where the patient was transferred the number to [phone]
<Alina Amador PA-C - Last Filed: 01/14/24 12:36>
Update Note
Update Note:
01/11/2024 1150 AM
Maxine Paris PA-C reviewed by culture results preliminarily positive gram-positive cocci in the anaerobic bottle. This was faxed to [facility] where the patient was transferred the number to [phone]
01/14/24:
Finalized blood culture growing MSSA. Result faxed to [facility] by director of community education.
ED Attending Note
<Fatuma Clarke DO - Last Filed: 01/10/24 23:01>
-
Portions of this chart may have been created with voice recognition software.� Occasional wrong word or��sound alike� substitutions may have occurred due to the inherent limitations of voice recognition software.
Discharge Plan
Departure
Patient Disposition: Acute Care Hospital
Date of Disposition: 01/10/24
Time of Disposition: 23:02
Discharge Problem:
Infectious discitis, Paraspinal abscess, Acute osteomyelitis of lumbar spine
Prescriptions:
No Action
1 mg Tablet
1 tab PO DAILY
norethindrone-e.estradiol-iron 1 mg-20 mcg (21)/75 mg (7) Tablet
1 tab PO DAILY
prednisone 20 mg tablet
40 mg PO DAILY Qty: 10 0RF
Referrals:
NONE,* [Family Provider] -
Hospital Transfer
Other hospital: [facility]
I certify that the patient requires transfer: Yes
Discussed case with accepting physician: Dr. Donaldson
Reason for transfer: specialties available
Interventions
Interventions:
*Risk Screen - Suicide Last Done: 01/10/24 21:07
*General Assessment Last Done: 01/10/24 22:58
*Neglect/Abuse Screening Last Done: 01/10/24 21:07
ED- Fall Risk Assessment Last Done: 01/10/24 22:58
*ED COVID-19 Vaccine History Last Done: 01/10/24 22:58
*Nursing Disposition Last Done: 01/10/24 23:52
ED-Musculoskeletal Assessment Last Done: 01/10/24 22:57
Discharge Date and Time
Discharge Date/Time: 01/10/24 23:53
Print Language: POLISH
[2024-01-10 22:54] VITALS: BP 128/87
[2024-01-10 22:55] LABS: Erythrocyte Sed Rate 60 mm/hour (0-20)
[2024-01-10 23:07] LABS: INR 1.07; PT 13.7 Sec (11.4-14.6)
[2024-01-10 23:08] LABS: APTT 30.9 Sec (23.4-35.0)
[2024-01-10] MEDS: DILAUDID 1 MG IV (23:40)
== END 2024-01-10 23:53 | disposition short-term general hospital (02) ==
LOC: EMR 21:04
PROVIDERS: EMERGENCY PHYSICIAN Student in an Organized Health Care Education/Training Program
DX: M46.46 Discitis, unspecified, lumbar region (principal); M46.26 Osteomyelitis of vertebra, lumbar region; I10 Essential (primary) hypertension; E11.69 Type 2 diabetes mellitus with other specified complication
CPT/HCPCS: 99283; 96374; 96375; 96361; 72148; 80053; 81003; 83605; 84703; 85025; 85610; 85652; 85730; 86140; 87040; 87147; 87186; 87205; 93005

== ENCOUNTER 2024-01-26 17:41 | Emergency (ER) | payer BC, SELFPAY ==
[2024-01-26 17:41] VITALS: BMI 26.6
[2024-01-26 17:47] VITALS: BP 134/85
--- NOTE | 2024-01-26 19:04 | ED.GENMED ---
History of Present Illness
General
Chief Complaint: Abdominal Symptoms
Source: patient
Exam Limitations: none
Time Seen by Provider: 01/26/24 18:41
History of Present Illness
History of Present Illness:
This is a 28 year old female that comes in with needing blood work. States that on the she was seen by Orthopedics and then sent to the ER. States that she cam here and they found a staph infection in the spine. States that she was sent to
[facility] and she was there for 1.5 weeks. States that she has a PICC line and was sent home last . Started the home antibiotics on Tuesday. States that on Tuesday/Tuesday she started with abd pain, nausea, has no appetite, abd swelling and
dizziness with nausea. States that she called the ID doctor at [facility] and she was told to come here for blood work. States that she gets SOB with walking, has abd pain that is a 4-5/10, vomiting yesterday, has a headache and dizziness when she
stands up. Denies any fever, chills, chest pain, diarrhea, urinary burning.
Past History
Past History
ED Past Medical History: Other ( back pain due to staph infection unknown cause, constipation, ); Negative Asthma, HTN, Hypercholesterolemia or NIDDM
ED Past Surgical History: Gynecological (D&C Mar 30 2023)
Social History
Tobacco: Non-smoker
Alcohol: Occasional
Drug: None
Personal:
Living: with family
Employment: Employed
Review of Systems
Review of Systems
All Other Systems: ROS reviewed and negative except as documented in HPI and ROS
Constitutional: Reports no symptoms; Denies fever or chills
EENT: Reports no symptoms
Respiratory: Reports trouble breathing (Walking to fast); Denies cough
Cardiac: Reports no symptoms; Denies chest pain
ABD/GI: Reports abdominal pain, nausea and vomiting; Denies diarrhea
: Reports no symptoms; Denies dysuria, frequency or urgency
Musculoskeletal: Reports no symptoms
Skin: Reports no symptoms
Neurological: Reports dizzy (when she get up) and headache
Psychiatric: Reports no symptoms
Phy Exam
General Physical Exam
General Presentation: mild distress
General age: appears stated age
General Skin: warm and dry
General Habitus: normal
General Mental: alert
General Hydration: appears well hydrated
ENT Exam
ENT Exam: TM's normal, pharynx normal and neck supple
Eye Exam
Eye Exam: EOMI
Cardiovascular Exam
Cardiovascular Exam: regular rate/rhythm, no edema, no murmur and normal peripheral pulses
Pulmonary Exam
Pulmonary Exam: lungs clear, no respiratory distress, no rales, chest non tender, no crackles, no rhonchi, no wheezing and no cough
Gastrointestinal Exam
Gastrointestinal Exam: normal bowel sounds, soft, no organomegaly, no pulsatile mass, non distended and tender
Musculoskeletal Exam
Musculoskeletal Exam: full ROM and no edema
Skin Exam
Skin Exam: normal color, warm/dry, no rash and no petechia
Psychiatric Exam
Psychiatric Exam: normal mood/affect
Course
Orders/Labs/Results
Orders:
Orders
01/26/24 19:31
Complete Blood Count/With Diff Urgent
Comprehensive Metabolic Panel Urgent
Lactate Level [Lactic Acid] Urgent
Blood Culture Urgent
LEONARDA Source: Blood/Venous
Specimen Description:
Blood Culture Urgent
LEONARDA Source: Blood/Venous
Specimen Description:
01/26/24 19:32
Urinalysis Reflex To Culture Urgent
Date Specimen was Collected: 01/26/24
Time Specimen was Collected: 19:30
Abnormal Lab Results
01/26/24 01/26/24
19:31 19:32
RBC 4.07 L 10^6/uL
(4.20-5.40)
Hgb 11.7 L g/dL
(12.0-16.0)
Hct 35.2 L %
(37.0-47.0)
Carbon Dioxide 20 L mmol/L
(22-30)
AST 61 H U/L
(14-36)
ALT 47 H U/L
(0-35)
Alkaline Phosphatase 134 H U/L
(38-126)
Total Protein 8.9 H g/dl
(6.3-8.2)
Urine Ketones 3+ A
(Negative)
01/26/24 19:31
01/26/24 19:31
H/H slightyl low. Carbon dioxide slightly low. AST/ALT elevation. Alk phos mildly elevated. Urine negative for infection.
Vital Signs
Initial and Last Documented VS:
Initial Vital Signs
Temp Pulse Resp BP Pulse Ox
98.1 F 92 16 134/85 98
01/26/24 17:47 01/26/24 17:47 01/26/24 17:47 01/26/24 17:47 01/26/24 17:47
Last Documented Vital Signs
Temp Pulse Resp BP Pulse Ox
98.1 F 84 17 136/84 98
01/26/24 17:47 01/26/24 19:49 01/26/24 19:49 01/26/24 19:49 01/26/24 19:49
MDM/Problems Addressed
Differential Diagnosis Includes:
Antibiotic resistance. Colitis, Diverticulitis
MDM/Problems Addressed:
This is a 28 year old female that comes in with c/o needing blood work. States that she is being treated for a staph infection in the spine and is at home know on antibiotics. Starting on Tuesday/Tuesday she started with abd pain, nausea, vomiting,
and abd bloating. States that she called the ID doctor at [facility] and they wanted her to come here for blood work.
Will get labs, Offered patient to get CT of the abd due to the LLQ pain but patient doesn't want anything more then the labs and Urine.
Back into see patient. Reassessed patient abdomen and she is no longer tender since she has urinated. Explained that her lactic acid and WBC are normal. Patient Liver enzymes are slightly elevated. Patient to follow up with the ID doctor at
[facility] for further evaluation. Will discharge home.
Chronic conditions affecting care:
Staph infection spine
Acute Exacerbation and/or Progression of Chronic Illness:
Staph infection spine
*Pulse Oximetry
Patient hypoxic: no
*EKG
Interpreted by ED Provider?: NA
Rate: EKG- N/A
*Digital Developer Interpretation
Rate: Digital Developer- N/A
*Critical Care Note
Total Time (30-74mins, 75-104mins- exclusive of procedures): Not Applicable
ED Attending Note
-
Portions of this chart may have been created with voice recognition software.� Occasional wrong word or��sound alike� substitutions may have occurred due to the inherent limitations of voice recognition software.
Discharge Plan
Departure
Patient Disposition: Home (Routine Discharge)
Date of Disposition: 01/26/24
Time of Disposition: 20:54
Patient with high blood pressure during this ER visit?: Yes
Condition: Good
Covid-19: Not Applicable
Discharge Problem:
Lab check
Instructions: BLOOD PRESSURE
Prescriptions:
No Action
1 mg Tablet
1 tab PO DAILY
norethindrone-e.estradiol-iron 1 mg-20 mcg (21)/75 mg (7) Tablet
1 tab PO DAILY
prednisone 20 mg tablet
40 mg PO DAILY Qty: 10 0RF
Referrals:
NONE,* [Family Provider] -
Activity Restrictions/Additional Instructions:
As discussed, your blood work shows that your White blood cell count is normal along with the lactic acid. You have had blood culture done but they will not come back today. Your Urine is negative for infection. Your Liver enzymes are slightly
elevated. Please follow up with the ID doctor at [facility]. IF YOU HAVE ANY FEVER, INCREASED OR CHANGING ABDOMINAL PAIN OR YOU HAVE ANY OTHER CONCERNS PLEASE RETURN TO THE EMERGENCY ROOM.
Discharge Date and Time
Print Language: TAJIK
[2024-01-26 19:49] VITALS: BP 136/84
[2024-01-26 19:49] LABS: % Basophils 0.3 % (0-2); % Eosinophils 0.2 % (0-6); % Immature Granulocytes 0.5 % (0-0.5); % Monocytes 7.9 % (1.7-9.3); % Neutrophils 51.1 % (42.2-75.2); Absolute Lymphocytes 2.3 10^3/uL (1.2-3.4); Absolute Monocytes 0.5 10^3/uL (0.1-0.6); Absolute Neutrophils 2.9 10^3/uL (1.4-6.5); Hematocrit 35.2 % (37.0-47.0); Hemoglobin 11.7 g/dL (12.0-16.0); Mean Corp Hgb Conc. 33.2 g/dL (33.0-37.0); Mean Corpuscular Hgb 28.7 pg (27.0-31.0); Mean Corpuscular Volume 86.5 fL (81.0-99.0); Mean Platelet Volume 10.4 fL (7.4-10.4); Nucleated Red Blood Cells % 0 %; Platelet Count 334 10^3/uL (130-400); Red Blood Cell Count 4.07 10^6/uL (4.20-5.40); White Blood Cell Count 5.7 10^3/uL (4.8-10.8)
[2024-01-26 19:53] LABS: Lactic Acid 0.8 mmol/L (0.7-2.0)
[2024-01-26 19:55] LABS: ALT (SGPT) 47 U/L (0-35); AST (SGOT) 61 U/L (14-36); Alkaline Phosphatase 134 U/L (38-126); Blood Urea Nitrogen 7 mg/dl (7-17); Calcium 9.9 mg/dl (8.4-10.2); Carbon Dioxide 20 mmol/L (22-30); Chloride 101 mmol/L (98-107); Estimated Creatinine Clearance 119 ml/min; Glucose 84 mg/dl (70-99); Potassium 4.1 mmol/L (3.5-5.1); Sodium 141 mmol/L (135-145); Total Bilirubin 0.7 mg/dl (0.2-1.3); Total Protein 8.9 g/dl (6.3-8.2); eGFR > 60.00
[2024-01-26 20:13] LABS: Urine Albumin Negative (Neg - Trace); Urine Bilirubin Negative (Negative); Urine Character Clear (Clear); Urine Color Yellow; Urine Glucose Negative (Negative); Urine Ketone 3+ (Negative); Urine Leukocyte Negative (Negative); Urine Nitrite Negative (Negative); Urine Occult Blood Negative (Negative); Urine Urobilinogen Negative (Neg - 1+); Urine pH 6.5 (5.0-9.0)
== END 2024-01-26 21:10 | disposition home or self-care (01) ==
LOC: EMR 17:41
PROVIDERS: Clinical Nurse Specialist Family Health; EMERGENCY PHYSICIAN Emergency Medicine
DX: Z13.0 Encounter for screening for diseases of the blood and blood-forming organs and certain disorders involving the immune mechanism (principal); R10.32 Left lower quadrant pain; R11.2 Nausea with vomiting, unspecified; I10 Essential (primary) hypertension
CPT/HCPCS: 99283; 80053; 81003; 83605; 85025; 87040